=== PATIENT | male | born 1960 | race Caucasian/White ===

== ENCOUNTER 2024-09-08 12:36 | Outpatient (CLI) | payer MEDICARE, OTHER | END 2024-09-08 12:37 | disposition home or self-care (01) | LOC: CSHCT 12:36 | PROVIDERS: ATTEND Orthopaedic Surgery | DX: Z01.818 Encounter for other preprocedural examination (principal); M17.12 Unilateral primary osteoarthritis, left knee | CPT/HCPCS: 71046; 80048; 85025; 85610; 87081 ==